=== PATIENT | male | born 1965 | race Caucasian/White ===

== ENCOUNTER 2023-12-11 10:27 | Observation (INO) ==
[2023-12-11] MEDS ORDERED: NovoLIN R (or HumuLIN R) SUBCUT PRN (13:28)
--- NOTE | 2023-12-11 13:40 | EKG ---
Test Reason : WEAKNESS Blood Pressure : */* mmHG Vent. Rate : 76 BPM Atrial Rate : 76 BPM P-R Int : 172 ms QRS Dur : 86 ms QT Int : 312 ms P-R-T Axes : 35 70 61 degrees QTc Int : 351 ms Normal sinus rhythm Normal ECG No previous ECGs available Confirmed by Dayron Vines ([id number]) on 12/11/2023 2:07:21 PM Referred By: Confirmed By: Dayron Vines
[2023-12-11] MEDS ORDERED: CONSULT PHARMACY - POTASSIUM & MAGNESIUM XX SCH (14:00)
[2023-12-11 14:07] LABS: BASOPHILS # (AUTO) 0.1 X10^3/uL (0.0-0.1); BASOPHILS % (AUTO) 0.8 % (0.2-1.0); EOSINOPHILS # (AUTO) 0.2 x10^3/uL (0.0-0.2); EOSINOPHILS % (AUTO) 1.4 % (0.9-2.9); HEMATOCRIT 34.5 % (42.0-54.0); HEMOGLOBIN 11.3 g/dL (13.5-18.0); LYMPHOCYTES % (AUTO) 16.7 % (21.0-51.0); MEAN CORPUSCULAR HEMOGLOBIN 31.4 pg (27.0-34.0); MEAN CORPUSCULAR HGB CONC 32.7 g/dL (33.0-35.0); MEAN CORPUSCULAR VOLUME 96.2 fL (80.0-100.0); MEAN PLATELET VOLUME 6.6 fL (7.4-11.0); MONOCYTES # (AUTO) 0.9 x10^3/uL (0.3-0.8); NEUTROPHILS % (AUTO) 74.1 % (42.0-75.0); PLATELET COUNT 415 X10^3/uL (150.0-450.0); RED BLOOD COUNT 3.59 X10^6/uL (4.7-6.0); RED CELL DISTRIBUTION WIDTH 13.5 % (11.6-16.5); WHITE BLOOD COUNT 12.2 X10^3/uL (3.6-10.0)
[2023-12-11 14:23] LABS: ALANINE AMINOTRANSFERASE 38 Units/L (12-78); ALBUMIN 3.4 g/dL (3.4-5.0); ALKALINE PHOSPHATASE 106 Units/L (46-116); ASPARTATE AMINO TRANSFERASE 19 Units/L (15-37); BLOOD UREA NITROGEN 30 mg/dL (7-18); CALCIUM 10.3 mg/dL (8.5-10.1); CARBON DIOXIDE 23.6 mmol/L (21-32); CHLORIDE 99 mmol/L (98-107); COR NA(FOR HYPERGLY) 133 mmol/L (136-145); CREATINE KINASE 30 Units/L (39-308); CREATININE 1.13 mg/dL (0.70-1.30); GLUCOSE 127 mg/dL (65-99); MAGNESIUM 1.1 mg/dL (2.0-2.9); SODIUM 132 mmol/L (136-145); TOTAL PROTEIN 8.1 g/dL (6.4-8.2); eGFR NON BLACK RACES > 60 (>60)
[2023-12-11 14:25] LABS: POTASSIUM 6.2 mmol/L (3.5-5.1)
[2023-12-11] MEDS: NS 1,000 ML IV 1,000 ML with MAGNESIUM SULFATE 50% INJ VIAL 2 G IV SCH ×2 (15:05)
[2023-12-11 17:21] LABS: BILIRUBIN,URINE NEGATIVE (NEGATIVE); BLOOD/HEMOGLOBIN,URINE NEGATIVE (NEGATIVE); GLUCOSE, URINE NEGATIVE (NEGATIVE); KETONES,URINE NEGATIVE (NEGATIVE); LEUKOCYTE ESTERASE ,URINE NEGATIVE (NEGATIVE); NITRITES,URINE NEGATIVE (NEGATIVE); PROTEIN,URINE 1+ (NEGATIVE); UROBILINOGEN,URINE NORMAL (NORMAL)
[2023-12-11 17:30] LABS: APPEARANCE,URINE CLEAR (CLEAR); COLOR,URINE YELLOW (YELLOW)
[2023-12-11 17:31] LABS: BACTERIA,URINE TRACE /HPF (NEGATIVE); HYALINE CASTS, URINE FEW /LPF (NEGATIVE); RBC,URINE NONE SEEN /HPF (0-3); SQUAMOUS EPITHELIAL CELL,UR RARE /HPF (NEGATIVE)
--- NOTE | 2023-12-11 18:15 | CT ---
EXAM:BRAIN W/O CONHISTORY:AMS;COMPARISON:None. .br.br coronal and sagittal reformats provided.Radiation dose: 917.54 mGy-cm total DLPFINDINGS:No abnormal areas of acute attenuation in the brain parenchyma.Moody-white differentiation remains intact.No intracranial, extra-axial, fluid collection.No hemorrhage.Periventricular chronic microvascular disease.No mass, mass effect or midline shift.Global atrophy; cerebellar atrophy is more significant than the cerebral atrophy.No ventriculomegaly.No acute fracture.Sinuses are well aerated.Mastoid air cells are well aerated.Globes and intra-orbital contents are unremarkable.IMPRESSION:1. No acute intracranial abnormality identified.2. Periventricular chronic microvascular disease.3. Global atrophy; cerebellar atrophy is more significant than the cerebral atrophy.THIS IS AN ELECTRONICALLY VERIFIED FINAL REPORT12/11/2023 6:12 PM - Electronically signed by Abhinav Cervantes MD
[2023-12-11] MEDS ORDERED: AMBIEN PO PRN (18:53)
[2023-12-11] MEDS: SNACK - Diabetic Appropriate PO SCH (19:30)
[2023-12-11] MEDS ORDERED: VIT C E ZN COPPR LUTEIN ZEAXAN PO SCH (21:00)
[2023-12-11] MEDS ORDERED: [UNRECOGNIZED DRUG - OTHER] PO SCH (21:00)
[2023-12-11] MEDS: CELEXA PO SCH (21:53)
[2023-12-11] MEDS: LIPITOR TAB 20 MG PO SCH (21:55)
[2023-12-11] MEDS: SINGULAIR TAB 10 MG PO SCH (21:56)
[2023-12-11] MEDS: SEROquel TAB 25 mg PO SCH (21:56)
[2023-12-12] MEDS: NS 1,000 ML IV 1,000 ML with MAGNESIUM SULFATE 50% INJ VIAL 2 G IV SCH ×10 (00:13→22:54)
--- NOTE | 2023-12-12 01:15 | RAD ---
PROCEDURE: Chest X-ray 1 View .HISTORY: Altered mental status.TECHNIQUE: AP view .COMPARISON: 07/11/2023.TECHNICAL QUALITY: Satisfactory .FINDINGS:Normal size heart .Mediastinum and hilar regions show no masses or lymphadenopathy .Normal central vascularity .No pulmonary consolidation, masses, pleural fluid, or pneumothorax .No acute bony abnormality .IMPRESSION:No active cardiopulmonary disease .Electronically signed by: Florian Patterson (Dec 12, 2023 01:13:28)
[2023-12-12] MEDS: VALIUM INJ IVP PRN ×2 (02:27→09:36)
[2023-12-12 04:37] LABS: BASOPHILS # (AUTO) 0.1 X10^3/uL (0.0-0.1); BASOPHILS % (AUTO) 0.8 % (0.2-1.0); EOSINOPHILS # (AUTO) 0.2 x10^3/uL (0.0-0.2); EOSINOPHILS % (AUTO) 1.8 % (0.9-2.9); HEMATOCRIT 32.7 % (42.0-54.0); HEMOGLOBIN 10.9 g/dL (13.5-18.0); LYMPHOCYTES % (AUTO) 28.2 % (21.0-51.0); MEAN CORPUSCULAR HEMOGLOBIN 31.8 pg (27.0-34.0); MEAN CORPUSCULAR HGB CONC 33.4 g/dL (33.0-35.0); MEAN CORPUSCULAR VOLUME 95.4 fL (80.0-100.0); MEAN PLATELET VOLUME 6.7 fL (7.4-11.0); MONOCYTES # (AUTO) 0.7 x10^3/uL (0.3-0.8); MONOCYTES % (AUTO) 6.8 % (0.0-13.0); NEUTROPHILS # (AUTO) 6.6 x10^3/uL (2.2-4.8); NEUTROPHILS % (AUTO) 62.4 % (42.0-75.0); PLATELET COUNT 374 X10^3/uL (150.0-450.0); RED BLOOD COUNT 3.43 X10^6/uL (4.7-6.0); RED CELL DISTRIBUTION WIDTH 13.4 % (11.6-16.5); WHITE BLOOD COUNT 10.6 X10^3/uL (3.6-10.0)
[2023-12-12 04:53] LABS: ALANINE AMINOTRANSFERASE 35 Units/L (12-78); ALBUMIN 3.1 g/dL (3.4-5.0); ALKALINE PHOSPHATASE 80 Units/L (46-116); ASPARTATE AMINO TRANSFERASE 21 Units/L (15-37); BLOOD UREA NITROGEN 23 mg/dL (7-18); CARBON DIOXIDE 22.5 mmol/L (21-32); CHLORIDE 100 mmol/L (98-107); COR NA(FOR HYPERGLY) 132 mmol/L (136-145); CREATININE 0.89 mg/dL (0.70-1.30); GLUCOSE 133 mg/dL (65-99); POTASSIUM 4.5 mmol/L (3.5-5.1); SODIUM 131 mmol/L (136-145); TOTAL PROTEIN 7.5 g/dL (6.4-8.2); eGFR NON BLACK RACES > 60 (>60)
[2023-12-12 04:59] LABS: COR CA(FOR HYPOALB) 9.7 mg/dL (8.5-10.1)
[2023-12-12] MEDS ORDERED: ZESTRIL TAB 20 MG ONE (08:53)
[2023-12-12] MEDS ORDERED: GLUCOPHAGE ONE ×2 (08:54→17:33)
[2023-12-12] MEDS ORDERED: HYDROCHLOROTHIAZIDE 25 MG TAB PO SCH (09:00)
[2023-12-12] MEDS: WELLBUTRIN XL 300 MG (DAILY) PO SCH (09:07)
[2023-12-12] MEDS: NAPROSYN PO PRN ×2 (09:07→14:52)
[2023-12-12] MEDS: GLUCOPHAGE PO SCH ×3 (09:07→17:37)
[2023-12-12] MEDS: ZESTRIL TAB 20 MG PO SCH (09:07)
[2023-12-12] MEDS: PEPCID TAB 20 MG PO SCH (09:08)
[2023-12-12] MEDS: ZyrTEC TAB 10 MG PO SCH (09:08)
--- NOTE | 2023-12-12 10:40 | DR.UPDATE ---
H&P Update Prescription drug monitoring program results: PDMP was not reviewed H&P Reviewed: Yes Any changes to H&P?: Yes Changes noted:: WAS A DIRECT ADMISSION FOR TREATMENT OF LEUKOCYTOSIS, HYPERKALEMIA, DEHYDRATION, AND ALTERED MENTAL STATUS. PATIENT ADMITS TO A NON- PRODUCTIVE COUGH AND SHORTNESS OF BREATH AT TIMES FOR THE PAST SEVERAL DAYS. HIS CAREGIVER REPORTS THAT HE HAS BEEN CONFUSED AND NOT HIS NORMAL SELF FOR OVER A WEEK NOW. OUTPATIENT LABS WERE OBTAINED FROM THE OFFICE AND REVEALED THAT HIS WBC WAS OVER 14,000 AND HIS POTASSIUM WAS GREATER THAN 6.0. HIS PMH INCLUDES: INTELLECTUAL DISABILITY, HTN, GERD, DM II, ANXIETY, DEPRESSION, ALLERGIC RHI NITIS, AND INSOMNIA, AND HERNIA REPAIR. ON ARRIVAL TO THE HOSPITAL, HIS VITALS WERE: 97.0-82-39-99%-122/64. LABS WERE OBTAINED. WBC 12.2, RBC 3.59, HGB 11.3, HCT 34.5, PLT COUNT 415, SODIUM 132, POTASSIUM 6.2, CHLORIDE 99, BUN 30, CREATININE 1.13, GLUCOSE 127, CALCIUM 10.3, MAGNESIUM 1.1, AST 19, ALT 38, ALK PHOS 106, CREATINE KINASE 30, TROPONIN 6.5, TOTAL PROTEIN 8.1, ALBUMIN 3.4. URINALYSIS WAS OBTAINED AND WAS UNREMARKABLE. URINE AND BLOOD CULTURES WERE SET UP. EKG WAS OBTAINED AND REVEALED NORMAL SINUS RHYTHM WITH HR 76 BPM. CHEST XRAY WAS OBTAINED AND REVEALED: NO ACTIVE PULMONARY DISEASE. A BRAIN CT WAS OBTAINED AND REVEALED: 1. No acute intracranial abnormality identified. 2. Periventricular chronic microvascular disease. 3. Global atrophy; cerebellar atrophy is more significant than the cerebral atrophy. ON ADMISSION, HE WAS STARTED ON NORMAL SALINE WITH MAGNESIUM AT 100 ML/HR, ROCEPHIN 1G IV DAILY, OTBS ACHS, HUMULIN R SLIDING SCALE, XARELTO 2.5MG BID, VALIUM 5MG IV Q8H PRN, AMBIEN 10MG HS PRN. HIS HOME MEDICATIONS OF LIPITOR, WELLBUTRIN, ZYRTEC, CELEXA, PEPCID, ZESTRIL, GLUCOPHAVE, SINGULAIR, NAPROSYN, SEROQUEL WERE RESUMED. OTHERWISE, WE WILL FOLLOW-UP WITH AM LABS AND CONTINUE TO [facility]. TIME SPENT ON CLINICAL ASSESSMENT, REVIEWING LABS AND IMAGING, DECISION MAKING, AND DOCUMENTATION GREATER THAN 75 MINUTES. DX: LEUKOCYTOSIS, ACUTE BRONCHITIS, AMS, DEHYDRATION, HYPERKALEMIA, HYPOMAGNESEMIA Patient was examined?: Yes Vital Signs: Temp Pulse Resp BP Pulse Ox O2 Del Method 12/12/23 06:01 142/65 12/12/23 06:00 63 21 97 12/12/23 05:01 103/55 12/12/23 05:00 64 21 95 12/12/23 04:03 118/55 12/12/23 04:01 98.1 F 68 20 100 12/12/23 03:09 110/57 12/12/23 03:00 62 18 98 12/12/23 02:00 108/55 12/12/23 02:00 61 17 95 12/12/23 01:00 107/63 12/12/23 01:00 64 18 97 12/12/23 00:00 98.5 F 115/55 12/12/23 00:00 68 17 96 12/11/23 23:00 123/71 12/11/23 23:00 76 15 93 L 12/11/23 22:00 140/65 12/11/23 22:00 73 27 H 93 L 12/11/23 21:01 141/66 12/11/23 21:00 69 18 97 12/11/23 20:01 145/72 12/11/23 20:00 98.2 F 66 22 99 12/11/23 19:00 Room Air 12/11/23 19:00 116/64 12/11/23 19:00 71 22 98 12/11/23 18:01 134/64 12/11/23 18:01 73 20 99 12/11/23 18:00 70 19 99 12/11/23 17:45 80 24 99 12/11/23 17:30 68 18 98 12/11/23 17:15 66 18 93 L 12/11/23 17:01 75 20 95 12/11/23 17:01 168/97 12/11/23 17:00 76 24 97 12/11/23 16:45 71 20 97 12/11/23 16:30 71 23 98 12/11/23 16:15 73 23 96 12/11/23 16:00 141/63 12/11/23 16:00 98.2 F 71 19 96 12/11/23 15:45 73 23 97 12/11/23 15:30 72 18 97 12/11/23 15:15 73 16 98 12/11/23 15:00 133/63 12/11/23 15:00 74 22 97 12/11/23 14:45 76 21 99 12/11/23 14:30 73 15 98 12/11/23 14:23 79 18 99 12/11/23 14:03 139/71 12/11/23 14:03 77 21 98 12/11/23 14:02 76 20 94 L 12/11/23 13:45 78 20 99 12/11/23 12:35 Room Air 12/11/23 13:30 97.0 F L 82 39 H 99 12/11/23 13:19 77 23 98 12/11/23 13:19 122/64 12/11/23 13:18 80
[2023-12-12] MEDS: ROCEPHIN VIAL 1 GRAM 1 G in NS 100 ML IV 100 ML IV SCH (10:59)
[2023-12-12] MEDS: XARELTO PO SCH ×2 (10:59→20:41)
[2023-12-12] MEDS: SNACK - Diabetic Appropriate PO SCH (19:00)
[2023-12-12] MEDS: LIPITOR TAB 20 MG PO SCH (20:41)
[2023-12-12] MEDS: SEROquel TAB 25 mg PO SCH (20:41)
[2023-12-12] MEDS: SINGULAIR TAB 10 MG PO SCH (20:41)
[2023-12-12] MEDS: CELEXA PO SCH (20:41)
[2023-12-13] MEDS: NS 1,000 ML IV 1,000 ML with MAGNESIUM SULFATE 50% INJ VIAL 2 G IV SCH ×2 (05:17)
[2023-12-13 05:23] LABS: BASOPHILS # (AUTO) 0.1 X10^3/uL (0.0-0.1); BASOPHILS % (AUTO) 0.9 % (0.2-1.0); EOSINOPHILS # (AUTO) 0.2 x10^3/uL (0.0-0.2); EOSINOPHILS % (AUTO) 1.8 % (0.9-2.9); HEMATOCRIT 30.2 % (42.0-54.0); HEMOGLOBIN 10.2 g/dL (13.5-18.0); LYMPHOCYTES # (AUTO) 2.5 X10^3/uL (1.3-2.9); MEAN CORPUSCULAR HEMOGLOBIN 31.9 pg (27.0-34.0); MEAN CORPUSCULAR HGB CONC 33.6 g/dL (33.0-35.0); MEAN CORPUSCULAR VOLUME 94.9 fL (80.0-100.0); MEAN PLATELET VOLUME 6.9 fL (7.4-11.0); MONOCYTES # (AUTO) 0.8 x10^3/uL (0.3-0.8); MONOCYTES % (AUTO) 9.2 % (0.0-13.0); NEUTROPHILS # (AUTO) 5.3 x10^3/uL (2.2-4.8); NEUTROPHILS % (AUTO) 60.1 % (42.0-75.0); PLATELET COUNT 314 X10^3/uL (150.0-450.0); RED BLOOD COUNT 3.19 X10^6/uL (4.7-6.0); RED CELL DISTRIBUTION WIDTH 13.3 % (11.6-16.5); WHITE BLOOD COUNT 8.9 X10^3/uL (3.6-10.0)
[2023-12-13 05:42] LABS: ALANINE AMINOTRANSFERASE 51 Units/L (12-78); ALBUMIN 2.9 g/dL (3.4-5.0); ALKALINE PHOSPHATASE 90 Units/L (46-116); ASPARTATE AMINO TRANSFERASE 33 Units/L (15-37); BLOOD UREA NITROGEN 18 mg/dL (7-18); CALCIUM 8.3 mg/dL (8.5-10.1); CARBON DIOXIDE 24.8 mmol/L (21-32); CHLORIDE 104 mmol/L (98-107); COR CA(FOR HYPOALB) 9.2 mg/dL (8.5-10.1); COR NA(FOR HYPERGLY) 136 mmol/L (136-145); CREATININE 0.85 mg/dL (0.70-1.30); GLUCOSE 123 mg/dL (65-99); POTASSIUM 4.7 mmol/L (3.5-5.1); SODIUM 135 mmol/L (136-145); TOTAL PROTEIN 6.8 g/dL (6.4-8.2); eGFR NON BLACK RACES > 60 (>60)
[2023-12-13] MEDS ORDERED: GLUCOPHAGE ONE (08:11)
[2023-12-13] MEDS ORDERED: ZESTRIL TAB 20 MG ONE (08:11)
[2023-12-13 08:17] VITALS: BMI 27.8
[2023-12-13] MEDS: PEPCID TAB 20 MG PO SCH (08:19)
[2023-12-13] MEDS: GLUCOPHAGE PO SCH (08:19)
[2023-12-13] MEDS: WELLBUTRIN XL 300 MG (DAILY) PO SCH (08:19)
[2023-12-13] MEDS: ZESTRIL TAB 20 MG PO SCH (08:19)
[2023-12-13] MEDS: XARELTO PO SCH (08:19)
[2023-12-13] MEDS: ZyrTEC TAB 10 MG PO SCH (08:20)
[2023-12-13] MEDS: ROCEPHIN VIAL 1 GRAM 1 G in NS 100 ML IV 100 ML IV SCH (08:20)
[2023-12-13 11:16] VITALS: O2SAT 98
[2023-12-13 15:23] VITALS: BP 115/60; PULSE 71; RESP 23; TEMP 98
== END 2023-12-13 14:55 | disposition home or self-care (01) ==
LOC: ICU
PROVIDERS: ADMIT Internal Medicine; ATTEND Internal Medicine
DX: J20.8 Acute bronchitis due to other specified organisms; I10 Essential (primary) hypertension; E83.42 Hypomagnesemia; K21.9 Gastro-esophageal reflux disease without esophagitis; R41.82 Altered mental status, unspecified; R53.83 Other fatigue; E86.0 Dehydration; E87.5 Hyperkalemia; F41.1 Generalized anxiety disorder; R04.0 Epistaxis; E78.5 Hyperlipidemia, unspecified; E87.1 Hypo-osmolality and hyponatremia; R06.02 Shortness of breath; E11.65 Type 2 diabetes mellitus with hyperglycemia; R53.1 Weakness

== ENCOUNTER 2023-12-19 14:21 | Observation (INO) ==
[2023-12-19] MEDS ORDERED: NovoLIN R (or HumuLIN R) SUBCUT PRN (19:18)
[2023-12-19] MEDS ORDERED: AMBIEN PO PRN (19:36)
--- NOTE | 2023-12-19 19:37 | EKG ---
Test Reason : Hyperkalemia Blood Pressure : */* mmHG Vent. Rate : 67 BPM Atrial Rate : 67 BPM P-R Int : 174 ms QRS Dur : 88 ms QT Int : 338 ms P-R-T Axes : 23 64 58 degrees QTc Int : 357 ms Normal sinus rhythm Normal ECG When compared with ECG of 11-DEC-2023 13:25, No significant change was found Confirmed by Seven Zapata MD ([id number]) on 12/21/2023 9:02:28 AM Referred By: Confirmed By: Seven Zapata MD
[2023-12-19 19:46] LABS: BASOPHILS # (AUTO) 0.1 X10^3/uL (0.0-0.1); BASOPHILS % (AUTO) 0.6 % (0.2-1.0); EOSINOPHILS # (AUTO) 0.3 x10^3/uL (0.0-0.2); EOSINOPHILS % (AUTO) 2.3 % (0.9-2.9); HEMATOCRIT 33.2 % (42.0-54.0); HEMOGLOBIN 10.8 g/dL (13.5-18.0); LYMPHOCYTES # (AUTO) 2.1 X10^3/uL (1.3-2.9); LYMPHOCYTES % (AUTO) 19.5 % (21.0-51.0); MEAN CORPUSCULAR HEMOGLOBIN 31.5 pg (27.0-34.0); MEAN CORPUSCULAR HGB CONC 32.7 g/dL (33.0-35.0); MEAN CORPUSCULAR VOLUME 96.4 fL (80.0-100.0); MEAN PLATELET VOLUME 6.8 fL (7.4-11.0); MONOCYTES # (AUTO) 0.8 x10^3/uL (0.3-0.8); MONOCYTES % (AUTO) 7.5 % (0.0-13.0); NEUTROPHILS # (AUTO) 7.7 x10^3/uL (2.2-4.8); NEUTROPHILS % (AUTO) 70.1 % (42.0-75.0); PLATELET COUNT 411 X10^3/uL (150.0-450.0); RED BLOOD COUNT 3.44 X10^6/uL (4.7-6.0); RED CELL DISTRIBUTION WIDTH 13.9 % (11.6-16.5); WHITE BLOOD COUNT 10.9 X10^3/uL (3.6-10.0)
[2023-12-19] MEDS ORDERED: SNACK - Diabetic Appropriate PO SCH (20:00)
[2023-12-19] MEDS ORDERED: CONSULT PHARMACY - POTASSIUM & MAGNESIUM XX SCH (20:00)
[2023-12-19 20:02] LABS: ALANINE AMINOTRANSFERASE 48 Units/L (12-78); ALBUMIN 3.5 g/dL (3.4-5.0); ALKALINE PHOSPHATASE 82 Units/L (46-116); ASPARTATE AMINO TRANSFERASE 22 Units/L (15-37); BLOOD UREA NITROGEN 21 mg/dL (7-18); CALCIUM 8.5 mg/dL (8.5-10.1); CARBON DIOXIDE 27.2 mmol/L (21-32); CHLORIDE 98 mmol/L (98-107); CREATINE KINASE 43 Units/L (39-308); CREATININE 0.95 mg/dL (0.70-1.30); GLUCOSE 82 mg/dL (65-99); MAGNESIUM 1.8 mg/dL (2.0-2.9); SODIUM 131 mmol/L (136-145); TOTAL PROTEIN 7.4 g/dL (6.4-8.2); eGFR NON BLACK RACES > 60 (>60)
[2023-12-19 20:06] LABS: POTASSIUM 5.7 mmol/L (3.5-5.1)
[2023-12-19 20:34] VITALS: BMI 39.9
[2023-12-19] MEDS: NS 1,000 ML IV 1,000 ML IV SCH (20:42)
[2023-12-19] MEDS: MAG-OX TAB PO SCH ×2 (20:56→21:14)
[2023-12-19] MEDS: MUCINEX EXPECTORANT PO SCH (20:57)
[2023-12-19] MEDS ORDERED: SINGULAIR TAB 10 MG PO SCH (21:00)
[2023-12-19] MEDS ORDERED: LIPITOR TAB 20 MG PO SCH (21:00)
[2023-12-19] MEDS ORDERED: SEROquel TAB 25 mg PO SCH (21:00)
[2023-12-19] MEDS ORDERED: CELEXA PO SCH (21:00)
[2023-12-19] MEDS: NAPROSYN PO PRN (21:14)
[2023-12-20] MEDS: NS 1,000 ML IV 1,000 ML IV SCH ×3 (02:48→12:36)
[2023-12-20 05:17] LABS: BASOPHILS # (AUTO) 0.1 X10^3/uL (0.0-0.1); BASOPHILS % (AUTO) 1.5 % (0.2-1.0); EOSINOPHILS # (AUTO) 0.2 x10^3/uL (0.0-0.2); EOSINOPHILS % (AUTO) 2.5 % (0.9-2.9); HEMATOCRIT 30.6 % (42.0-54.0); HEMOGLOBIN 10.3 g/dL (13.5-18.0); LYMPHOCYTES # (AUTO) 2.9 X10^3/uL (1.3-2.9); LYMPHOCYTES % (AUTO) 32.3 % (21.0-51.0); MEAN CORPUSCULAR HEMOGLOBIN 32.4 pg (27.0-34.0); MEAN CORPUSCULAR HGB CONC 33.8 g/dL (33.0-35.0); MEAN CORPUSCULAR VOLUME 95.9 fL (80.0-100.0); MEAN PLATELET VOLUME 7.4 fL (7.4-11.0); MONOCYTES # (AUTO) 0.7 x10^3/uL (0.3-0.8); MONOCYTES % (AUTO) 8.3 % (0.0-13.0); NEUTROPHILS # (AUTO) 4.9 x10^3/uL (2.2-4.8); NEUTROPHILS % (AUTO) 55.4 % (42.0-75.0); PLATELET COUNT 370 X10^3/uL (150.0-450.0); RED BLOOD COUNT 3.19 X10^6/uL (4.7-6.0); WHITE BLOOD COUNT 8.8 X10^3/uL (3.6-10.0)
[2023-12-20 05:20] VITALS: RESP 20; O2SAT 98
[2023-12-20 05:31] LABS: ALANINE AMINOTRANSFERASE 46 Units/L (12-78); ALBUMIN 3.2 g/dL (3.4-5.0); ALKALINE PHOSPHATASE 77 Units/L (46-116); ASPARTATE AMINO TRANSFERASE 24 Units/L (15-37); BLOOD UREA NITROGEN 18 mg/dL (7-18); CALCIUM 8.2 mg/dL (8.5-10.1); CARBON DIOXIDE 26.1 mmol/L (21-32); CHLORIDE 102 mmol/L (98-107); COR CA(FOR HYPOALB) 8.8 mg/dL (8.5-10.1); COR NA(FOR HYPERGLY) 138 mmol/L (136-145); GLUCOSE 161 mg/dL (65-99); POTASSIUM 4.8 mmol/L (3.5-5.1); SODIUM 137 mmol/L (136-145); TOTAL PROTEIN 6.7 g/dL (6.4-8.2); eGFR NON BLACK RACES > 60 (>60)
[2023-12-20] MEDS ORDERED: GLUCOPHAGE ONE (06:00)
[2023-12-20] MEDS ORDERED: GLUCOPHAGE PO SCH (07:00)
[2023-12-20] MEDS ORDERED: CONSULT PHARMACY - POTASSIUM & MAGNESIUM XX SCH (07:00)
[2023-12-20 07:46] VITALS: BP 138/64; PULSE 78; TEMP 98.3
[2023-12-20] MEDS ORDERED: ZESTRIL TAB 20 MG ONE (08:09)
[2023-12-20] MEDS: MAG-OX TAB PO SCH ×2 (08:42→09:55)
[2023-12-20] MEDS: MUCINEX EXPECTORANT PO SCH (08:43)
[2023-12-20] MEDS ORDERED: WELLBUTRIN XL 300 MG (DAILY) PO SCH (09:00)
[2023-12-20] MEDS ORDERED: ZESTRIL TAB 20 MG PO SCH (09:00)
[2023-12-20] MEDS ORDERED: CLARITIN-D 12 HOUR TAB PO SCH (09:00)
[2023-12-20] MEDS: NAPROSYN PO PRN (09:45)
[2023-12-20] MEDS ORDERED: ULTRAM PO PRN (09:48)
--- NOTE | 2023-12-20 10:47 | DR.CARTERS ---
Short Stay Summary - Admission Date Date of Admission: 12/19/23 - Discharge Date Discharge Date: 12/20/23 - Admission Diagnoses (1) Hyperkalemia Status: Acute (2) HTN (hypertension) Status: Acute (3) Diabetes mellitus Status: Acute - Hospital Course Vitals: Vital Signs Temperature 98.3 F 12/20/23 07:40 Temperature 98.2 F 12/20/23 04:00 Pulse Rate [Bilateral Radial] 78 12/20/23 07:40 Pulse Rate [Bilateral Radial] 71 12/20/23 04:00 Respiratory Rate 20 12/20/23 07:40 Respiratory Rate 20 12/20/23 04:00 Blood Pressure [Right Arm] 138/64 12/20/23 07:40 Blood Pressure [Right Arm] 113/60 12/20/23 04:00 - Discharge Medications Discharge Medications: Home Medication List guaifenesin 600 mg tablet, extended release 12 hr 600 mg PO BID 12/19/23 [History] levocetirizine 5 mg tablet 5 mg PO QDAY 12/19/23 [History] tramadol 50 mg tablet 50 mg PO TID PRN #90 tabs 12/20/23 [Rx] Prescriptions: tramadol Art Schwartz - Hospital Course Hospital Course: WAS RECENTLY HOSPITALIZED FOR TREATMENT OF LEUKOCYTOSIS, HYPERKALEMIA, DEHYDRATION, ACUTE BRONCHITIS, AND ALTERED MENTAL STATUS. HE WAS DISCHARGED HOME WITH WITH NEW RX OF XARELTO 2.5MG BID AND CEFDINIR 300MG BID. HE WAS INSTRUCTED TO STOP TAKING THE HYDROCHLOROTHIAZIDE. AT THE TIME OF DISCHARGE, HIS POTASSIUM HAD DECREASED TO 4.7 AND WBC WAS NORMAL. PATIENT PRESENTED TO THE OFFICE ON 12/18/22 FOR A HOSPITAL FOLLOW-UP. OUTPATIENT LABS WERE RECHECKED AND REVEALED AN ELEVATED POTASSIUM OF 6.9. PATIENT WAS READMITTED TO THE HOSPITAL FOR FURTHER EVALUATION AND TREATMENT OF ACUTE HYPERKALEMIA. HIS PMH INCLUDES: INTELLECTUAL DISABILITY, HTN, GERD, DM II, ANXIETY, DEPRESSION, ALLERGIC RHINITIS, AND INSOMNIA, AND HERNIA REPAIR. ON ARRIVAL TO THE HOSPTIAL, HIS VITALS WERE: WBC 10.9, RBC 3.44, HGB 10.8, HCT 33.2, PLT COUNT 411, SODIUM 131, POTASSIUM 5.7, BUN 21, CREATININE 0.95, GLUCOSE 82, CALCIUM 8.5, MAGNESIUM 1.8, AST 22, ALT 48, ALK PHOS 82, TOTAL PROTEIN 7.4, ALBUMIN 3.5. EKG WAS OBTAINED AND REVEALED NORMAL SINUS RHYTHM WITH HR 67 BPM. HE WAS STARTED ON NORMAL SALINE AT 125 ML/HR, OTBS ACHS, HUMULIN R SLIDING SCALE, TRAMADOL 50MG PO Q6H PRN. WE RESUMED HIS HOME MEDICATIONS OF LIPITOR, WELLBUTRIN, CELEXA, MUCINEX, ZESTRIL, CLARITIN D, GLUCOPHAGE, SINGULAIR, SEROQUEL, AND AMBIEN. PATIENT HAD RECENTLY BEEN STARTED ON NABUMETONE 750MG BID PRN. WE WILL DISCONTINUE THIS, THE COMBINATION OF THE NSAIDS AND LISINOPRIL MAY BE CONTRIBUTING TO THE HYPERKALEMIA. OTHERWISE, WE PLANNED TO FOLLOW-UP WITH AM LABS AND CONTINUE TO MONITOR. ON THE MORNING FOLLOWING ADMISSION, PATIENT IS ALERT AND ORIENTED, SITTING UP IN BED ON MORNING ROUNDS. HE DENIED CURRENT COMPLAINTS. ON EXAMINATION, HEART IS REGULAR IN RATE AND RHYTHM. BILATERAL LUNGS ARE CLEAR TO AUSCULTATION. ABDOMEN IS ROUND, SOFT, AND NON-TENDER WITH NORMAL BOWEL SOUNDS NOTED IN ALL QUADRANTS. GOOD RANGE OF MOTION IS NOTED TO UPPER AND LOWER EXTREMITIES WITH NO EDEMA NOTED. HIS VITALS THIS MORNING ARE: 98.3-78-20-98%-138/64. LABS WERE OBTAINED. WBC 8.8, RBC 3.19, HGB 10.3, HCT 30.6, PLT COUNT 370, SODIUM 137, POTASSIUM 4.8, CHLORIDE 102, BUN 18, CREATININE 0.90, GLUCOSE 161, CALCIUM 8.2, MAGNESIUM 1.9, TOTAL BILI 0.40, AST 24, ALT 46, ALK PHOS 77, TOTAL PROTEIN 6.7, ALBUMIN 3.2. WE PLANNED FOR DISCHARGE. INSTRUCTIONS FOR MEDICATIONS AND FOLLOW-UP WERE DISCUSSED WITH PATIENT AND HIS CAREGIVER. HE WAS INSTRUCTED TO STOP THE NABUMETONE AND ANY OTHER NSAIDS. WE GAVE A NEW RX OF TRAMADOL 50MG TID PRN PAIN. WE WILL ORDER A RENAL CTA TO BE DONE AN OUTPATIENT TO RULE OUT RENAL ARTERY STENOSIS A POSSIBLE CAUSE OF THE HTN AND ELEVATED POTASSIUM. HE IS ON METFORMIN, SO IT SHOULD BE HELD TWO DAYS PRIOR AND TWO DAYS AFTER THE CTA. PATIENT AND FAMILY VERBALIZED UNDERSTANDING. PATIENT WILL BE DISCHARGED HOME WITH HIS FAMILY IN STABLE CONDITION. HE IS INSTRUCTED TO FOLLOW UP IN THE OFFICE ON 12/26/22 AT 11:10 AM. TIME SPENT ON CLINICAL ASSESSMENT, REVIEWING LABS AND IMAGING, DECISION MAKING, DISCHARGE INSTRUCTIONS, PREPARING DISCHARGE PAPERS, AND DOCUMENTATION GREATER THAN 75 MINUTES. - Discharge Plan Disposition: 01 HOME, SELF-CARE Condition: Stable Prescriptions: tramadol 50 mg PO TID PRN #90 tabs PRN Reason: - Follow up/Referrals Follow up/Referrals: FERMIN MORROW [Primary Care Provider] - 12/26/23 11:10 am - Instructions Instructions: Hyperkalemia, [id number], Chest Wall Pain, [id number]-[id number] Additional Instructions: DIET TOLERATED. ACTIVITY TOLERATED. D/C NSAIDS (NSAID AND LISINOPRIL COMBINATION IS LIKELY THE CAUSE OF THE HYPERKALEMIA) Forms: Excuse From Work or School, Post Hospital Follow Up Care
== END 2023-12-20 16:10 | disposition home or self-care (01) ==
LOC: MED/SURG
PROVIDERS: ADMIT Internal Medicine; ATTEND Internal Medicine
DX: E11.65 Type 2 diabetes mellitus with hyperglycemia; E87.5 Hyperkalemia; J20.8 Acute bronchitis due to other specified organisms; I10 Essential (primary) hypertension; R41.82 Altered mental status, unspecified

== ENCOUNTER 2024-01-20 14:55 | Observation (INO) ==
[2024-01-20 19:29] VITALS: BMI 41.5
[2024-01-20 19:29] LABS: BASOPHILS # (AUTO) 0.1 X10^3/uL (0.0-0.1); EOSINOPHILS # (AUTO) 0.2 x10^3/uL (0.0-0.2); EOSINOPHILS % (AUTO) 1.8 % (0.9-2.9); HEMATOCRIT 28.8 % (42.0-54.0); HEMOGLOBIN 9.7 g/dL (13.5-18.0); LYMPHOCYTES # (AUTO) 1.9 X10^3/uL (1.3-2.9); LYMPHOCYTES % (AUTO) 18.8 % (21.0-51.0); MEAN CORPUSCULAR HEMOGLOBIN 31.9 pg (27.0-34.0); MEAN CORPUSCULAR HGB CONC 33.7 g/dL (33.0-35.0); MEAN CORPUSCULAR VOLUME 94.5 fL (80.0-100.0); MEAN PLATELET VOLUME 6.9 fL (7.4-11.0); MONOCYTES # (AUTO) 0.9 x10^3/uL (0.3-0.8); MONOCYTES % (AUTO) 8.6 % (0.0-13.0); NEUTROPHILS # (AUTO) 7.1 x10^3/uL (2.2-4.8); NEUTROPHILS % (AUTO) 69.8 % (42.0-75.0); PLATELET COUNT 283 X10^3/uL (150.0-450.0); RED BLOOD COUNT 3.04 X10^6/uL (4.7-6.0); RED CELL DISTRIBUTION WIDTH 13.6 % (11.6-16.5); WHITE BLOOD COUNT 10.2 X10^3/uL (3.6-10.0)
[2024-01-20 19:46] LABS: ALANINE AMINOTRANSFERASE 74 Units/L (12-78); ALBUMIN 3.4 g/dL (3.4-5.0); ALKALINE PHOSPHATASE 80 Units/L (46-116); ASPARTATE AMINO TRANSFERASE 34 Units/L (15-37); BLOOD UREA NITROGEN 32 mg/dL (7-18); CARBON DIOXIDE 26.4 mmol/L (21-32); CHLORIDE 104 mmol/L (98-107); COR NA(FOR HYPERGLY) 140 mmol/L (136-145); CREATININE 1.22 mg/dL (0.70-1.30); FREE T4 (FREE THYROXINE) 1.01 ng/dL (0.76-1.46); GLUCOSE 158 mg/dL (65-99); SODIUM 139 mmol/L (136-145); TOTAL PROTEIN 6.9 g/dL (6.4-8.2); TSH (3RD GENERATION) 0.628 uIU/mL (0.358-3.74); eGFR NON BLACK RACES > 60 (>60)
--- NOTE | 2024-01-20 19:47 | EKG ---
Test Reason : mtf Blood Pressure : */* mmHG Vent. Rate : 72 BPM Atrial Rate : 72 BPM P-R Int : 162 ms QRS Dur : 86 ms QT Int : 350 ms P-R-T Axes : 36 68 56 degrees QTc Int : 383 ms Normal sinus rhythm Normal ECG When compared with ECG of 19-DEC-2023 19:22, No significant change was found Confirmed by Seven Zapata MD ([id number]) on 01/21/2024 7:40:02 AM Referred By: Confirmed By: Seven Zapata MD
[2024-01-20 19:50] LABS: POTASSIUM 5.5 mmol/L (3.5-5.1)
[2024-01-20] MEDS: NS 1,000 ML IV 1,000 ML IV SCH (20:15)
[2024-01-20] MEDS: CONSULT PHARMACY - POTASSIUM & MAGNESIUM XX SCH (20:31)
[2024-01-20] MEDS: RESTORIL CAP 15 MG PO PRN (21:28)
[2024-01-20] MEDS: MAG-OX TAB PO SCH (21:29)
[2024-01-20] MEDS: TYLENOL 325 MG TAB PO PRN (21:30)
[2024-01-20] MEDS ORDERED: NovoLIN R (or HumuLIN R) SUBCUT PRN (22:14)
[2024-01-21 04:11] LABS: BASOPHILS # (AUTO) 0.1 X10^3/uL (0.0-0.1); EOSINOPHILS # (AUTO) 0.2 x10^3/uL (0.0-0.2); EOSINOPHILS % (AUTO) 2.4 % (0.9-2.9); LYMPHOCYTES # (AUTO) 2.6 X10^3/uL (1.3-2.9); LYMPHOCYTES % (AUTO) 26.5 % (21.0-51.0); MEAN CORPUSCULAR HEMOGLOBIN 31.6 pg (27.0-34.0); MEAN CORPUSCULAR HGB CONC 33.4 g/dL (33.0-35.0); MEAN CORPUSCULAR VOLUME 94.4 fL (80.0-100.0); MEAN PLATELET VOLUME 6.9 fL (7.4-11.0); MONOCYTES # (AUTO) 0.9 x10^3/uL (0.3-0.8); MONOCYTES % (AUTO) 9.1 % (0.0-13.0); NEUTROPHILS # (AUTO) 5.9 x10^3/uL (2.2-4.8); PLATELET COUNT 294 X10^3/uL (150.0-450.0); RED BLOOD COUNT 3.17 X10^6/uL (4.7-6.0); RED CELL DISTRIBUTION WIDTH 13.3 % (11.6-16.5); WHITE BLOOD COUNT 9.7 X10^3/uL (3.6-10.0)
[2024-01-21 04:19] LABS: ALANINE AMINOTRANSFERASE 69 Units/L (12-78); ALBUMIN 3.4 g/dL (3.4-5.0); ALKALINE PHOSPHATASE 78 Units/L (46-116); ASPARTATE AMINO TRANSFERASE 31 Units/L (15-37); BLOOD UREA NITROGEN 28 mg/dL (7-18); CALCIUM 7.9 mg/dL (8.5-10.1); CARBON DIOXIDE 25.5 mmol/L (21-32); CHLORIDE 104 mmol/L (98-107); COR NA(FOR HYPERGLY) 140 mmol/L (136-145); GLUCOSE 134 mg/dL (65-99); MAGNESIUM 2.2 mg/dL (2.0-2.9); POTASSIUM 4.7 mmol/L (3.5-5.1); SODIUM 139 mmol/L (136-145); eGFR NON BLACK RACES > 60 (>60)
[2024-01-21 04:43] VITALS: RESP 16
[2024-01-21 05:43] VITALS: TEMP 98.2; O2SAT 98
[2024-01-21 10:17] VITALS: BP 168/77; PULSE 69
[2024-01-21] MEDS ORDERED: SNACK - Diabetic Appropriate PO SCH (20:00)
--- NOTE | 2024-01-22 11:53 | DR.CARTERS ---
Short Stay Summary - Admission Date Date of Admission: 01/20/24 - Discharge Date Discharge Date: 01/21/24 - Admission Diagnoses (1) Hyperkalemia Status: Acute (2) HTN (hypertension) Status: Chronic (3) Diabetes mellitus Status: Chronic - Discharge Medications Discharge Medications: Home Medication List amlodipine 5 mg tablet 5 mg PO QDAY #30 tabs 01/21/24 [Rx] aspirin 325 mg tablet 325 mg PO DAILY 01/21/24 [History] famotidine 20 mg tablet 20 mg PO DAILY 01/21/24 [History] hydrochlorothiazide 12.5 mg tablet 12.5 mg PO QDAY 01/21/24 [History] nabumetone 750 mg tablet 750 mg PO BID PRN pain 01/21/24 [History] olanzapine 5 mg tablet 5 mg PO QPM 01/21/24 [History] rivaroxaban 2.5 mg tablet (Xarelto) 2.5 mg PO BID 01/21/24 [History] tamsulosin 0.4 mg capsule 0.4 mg PO QPM 01/21/24 [History] tirzepatide 7.5 mg/0.5 mL subcutaneous pen injector (Mounjaro) mg subcut WEEKLY 01/21/24 [History] Prescriptions: amlodipine Art Schwartz Jonny - Hospital Course Hospital Course: WAS RECENTLY HOSPITALIZED FOR TREATMENT OF HYPERKALEMIA AND ALTERED MENTAL STATUS. PATIENT HAD A FOLLOW-UP APPOINTMENT IN THE OFFICE ON 01/19/24. OUTPATIENT LABS WERE RECHECKED AT THAT TIME AND REVEALED AN ELEVATED POTASSIUM OF 7.1. PATIENT WAS ADMITTED TO THE HOSPITAL FOR FURTHER EVALUATION AND TREATMENT OF ACUTE HYPERKALEMIA. HIS PMH INCLUDES: INTELLECTUAL DISABILITY, HTN, GERD, DM II, ANXIETY, DEPRESSION, ALLERGIC RHINITIS, AND INSOMNIA, AND HERNIA REPAIR. ON ARRIVAL TO THE HOSPTIAL, HIS VITALS WERE: 98.2-80-20-97%-147/55. LABS WERE OBTAINED. WBC 10.2, RBC 3.04, HGB 9.7, HCT 28.8, PLT COUNT 283, SODIUM 139, POTASSIUM 5.5, CHLORIDE 104, BUN 32, CREATININE 1.22, GLUCOSE 158, CALCIUM 8.0, MAGNESIUM 1.8, TOTAL BILI 0.10, AST 34, ALT 74, ALK PHOS 80, TOTAL PROTEIN 6.9, ALBUMIN 3.4, FREE T4 1.01, TSH 0.628. ADDITIONAL LABS ARE PENDING FOR A PITUITARY WORK-UP. EKG WAS OBTAINED AND REVEALED NORMAL SINUS RHYTHM WITH HR 72 BPM. A RENAL CTA WAS OBTAINED ON 01/01/24. IT REVEALED: 1. 50% STENOSIS OF THE PROXIMAL LEFT RENAL ARTERY. NO SIGNIFICANT STENOSIS OF THE RIGHT RENAL ARTERY. 2. MULTIFOCAL LESS THAN 50% STENOSIS OF OTHER ARTERIES OF THE ABDOMEN AND PELVIS. HE WAS STARTED ON NORMAL SALINE AT 125 ML/HR, OTBS ACHS, HUMULIN R SLIDING SCALE, THE POTASSIUM AND MAGNESIUM PROTOCOLS, AND TEMAZEPAM 15MG PO HS PRN. WE PLANNED TO LOOK OVER HIS HOME MEDICATIONS AND RESUME APPROPRIATE. OTHERWISE, WE PLANNED TO FOLLOW-UP WITH AM LABS AND CONTINUE TO MONITOR. ON THE MORNING FOLLOWING ADMISSION, PATIENT IS ALERT AND ORIENTED, SITTING UP IN BED ON MORNING ROUNDS. HE DENIED CURRENT COMPLAINTS. ON EXAMINATION, HEART IS REGULAR IN RATE AND RHYTHM. BILATERAL LUNGS ARE CLEAR TO AUSCULTATION. ABDOMEN IS ROUND, SOFT, AND NON-TENDER WITH NORMAL BOWEL SOUNDS NOTED IN ALL QUADRANTS. GOOD RANGE OF MOTION IS NOTED TO UPPER AND LOWER EXTREMITIES WITH NO EDEMA NOTED. HIS VITALS THIS MORNING ARE: 98.2-69-16-98%-168/77. LABS WERE OBTAINED. WBC 9.7, RBC 3.17, HGB 10.0, HCT 30.0, PLT COUNT 294, SODIUM 139, POTASSIUM 4.7, CHLORIDE 104, BUN 28, CREATININE 0.90, GLUCOSE 134, CALCIUM 7.9, MAGNESIUM 2.2, TOTAL BILI 0.20, AST 31, ALT 69, ALK PHOS 78, TOTAL PROTEIN 7.0, ALBUMIN 3.4. WE PLANNED FOR DISCHARGE. INSTRUCTIONS FOR MEDICATIONS AND FOLLOW-UP WERE DISCUSSED WITH PATIENT AND HIS CAREGIVER. HE WAS INSTRUCTED TO STOP THE LISINOPRIL. WE GAVE A NEW RX OF AMLODIPINE 5MG DAILY. PATIENT AND FAMILY VERBALIZED UNDERSTANDING OF ALL ORDERS. PATIENT WILL BE DISCHARGED HOME WITH HIS FAMILY IN STABLE CONDITION. HE IS INSTRUCTED TO FOLLOW UP IN THE OFFICE ON 01/28/23 AT 10:40 AM. TIME SPENT ON CLINICAL ASSESSMENT, REVIEWING LABS AND IMAGING, DECISION MAKING, DISCHARGE INSTRUCTIONS, PREPARING DISCHARGE PAPERS, AND DOCUMENTATION GREATER THAN 75 MINUTES. - Discharge Plan Disposition: 01 HOME, SELF-CARE Condition: Stable Prescriptions: amlodipine 5 mg PO QDAY #30 tabs - Follow up/Referrals Follow up/Referrals: Maryana Yen [Nurse Practitioner] - 01/28/24 10:40 am - Instructions Instructions: Hyperkalemia, [id number], Type 2 Diabetes Mellitus, Self-Care, Adult, Zivn-ei-Rvqz, Hypertension, Adult, [id number] Additional Instructions: DIET TOLERATED. ACTIVITY TOLERATED. Forms: Post Hospital Follow Up Care
== END 2024-01-21 13:00 | disposition home or self-care (01) ==
LOC: ICU
PROVIDERS: ADMIT Internal Medicine; ATTEND Internal Medicine
DX: F79 Unspecified intellectual disabilities; E87.5 Hyperkalemia; F41.8 Other specified anxiety disorders; I10 Essential (primary) hypertension; K21.9 Gastro-esophageal reflux disease without esophagitis; E11.65 Type 2 diabetes mellitus with hyperglycemia